=== PATIENT | female | born 1995 | race Caucasian/White ===

== ENCOUNTER 2024-03-01 02:11 | Outpatient (CLI) | payer MEDICAID, SELFPAY ==
[2024-03-01 02:33] VITALS: BP 118/79; PULSE 74; PULSE 78; TEMP 36.8; O2SAT 98
[2024-03-01 03:08] LABS: Appearance Urine Clear (Clear); Bilirubin Urine Negative (Negative); Blood Urine Negative (Negative); Color Urine Yellow (Yellow); Glucose Urine Negative (Negative); Ketones Urine Negative (Negative); Leukocyte Esterase Urine Negative (Negative); Nitrite Urine Negative (Negative); Protein Urine 1+ (Negative); Specific Gravity Urine >= 1.030 (1.000-1.030)
[2024-03-01 03:10] LABS: Clue Cells No Clue Cells Seen (None Seen); Trichomonas No Trichomonas Seen (None Seen); Yeast No Yeast Seen (None Seen)
[2024-03-01 03:11] LABS: Bacteria Urine Few; RBC Urine 0-2 (0-2); Squamous Epithelial Cell Urine Few (None-Few); WBC Urine 0-2 (0-5)
--- NOTE | 2024-03-01 03:50 | PC.OBNST ---
NST Note NST Note Start: 03/01/24 02:18 Freq: ONCE Status: Active Protocol: Document 03/01/24 03:44 DAKOTAH (Rec: 03/01/24 03:50 INGRIDPaul Riz[place]ota) NST Note 6 Para (# of births) 4 EDC 04/12/24 Gestational Age In Weeks & Days 34 Weeks & 0 Days Patient Presented with Complaint(s) of Pain If Pain, describe location pelvic/rectal pain and pressure. Other Complaints Patient arrived on unit ambulatory alone. 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 Pt arrives with complaints of feeling a lot of pressure in her rectum like she needs to have a bowel movement but cannot. She also reports lower back abdominal like cramping and RLQ cramping all night. She also reports having a headache last week that lasted for 2 days accompanied by black spots in her vision. Did not resolve with tylenol. BP stable and WNL. Reports she had BM today and is very regular. UA and wetprep collected. UA positive for bacteria, sent for culture. Wetprep negative, RN noted a white thin discharge accompanied by an odor when collecting swab. William Rosa CNM aware. Patient has transfer of care appointment on 03/02 withEstelita Benz CNM. Will follow up at that time. Pt left unit ambulatory and labor signs and symptoms discussed. All questions answered. Reactive Yes Appropriate for Gestational Age Yes FRANCE Perez RN Date 03/01/24 Reactive Yes Appropriate for Gestational Age Yes FRANCE Prieto RNC Date 03/01/24 OB NST charge Yes Complete NST Note via Write Note Yes The provider's electronic signature indicates the NST is reactive/appropriate for gestational age. *Note to provider: If an addendum is required, open the patient's chart and click on the note under the Nurse/Allied Health tab.
== END 2024-03-01 03:30 | disposition home or self-care (01) ==
LOC: OB OUT 02:11 → OB 02:11
PROVIDERS: Visit Provider Advanced Practice Midwife
DX: O47.03 False labor before 37 completed weeks of gestation, third trimester (principal); Z3A.34 34 weeks gestation of pregnancy
CPT/HCPCS: 59025; 81001; 81003; 87086; 87210; G0463

== ENCOUNTER 2024-03-02 08:54 | Outpatient (CLI) | payer MEDICAID, SELFPAY | END 2024-03-02 08:55 | disposition home or self-care (01) | LOC: NFLDREF 03-16 11:11 | PROVIDERS: Referring Provider Obstetrics & Gynecology; Visit Provider Advanced Practice Midwife | DX: Z34.93 Encounter for supervision of normal pregnancy, unspecified, third trimester (principal); Z3A.35 35 weeks gestation of pregnancy | CPT/HCPCS: 82728 ==

== ENCOUNTER 2024-03-21 22:49 | Outpatient (CLI) | payer MEDICAID, SELFPAY ==
[2024-03-21 23:02] VITALS: BP 112/70; PULSE 80; PULSE 82; RESP 16; TEMP 36.7; O2SAT 98
--- NOTE | 2024-03-22 00:19 | PC.OBNST ---
NST Note NST Note Start: 03/21/24 22:52 Freq: ONCE Status: Active Protocol: Document 03/21/24 23:45 LADARIUS (Rec: 03/22/24 00:18 LADARIUS Desktop) NST Note 6 Para (# of births) 4 EDC 04/12/24 Gestational Age In Weeks & Days 37 Weeks & 0 Days Patient Presented with Complaint(s) of Decreased movement Reactive Yes Appropriate for Gestational Age Yes FRANCE Wyman RN Date 03/21/24 Reactive Yes Appropriate for Gestational Age Yes FRANCE Guerra RNC Date 03/21/24 OB NST charge Yes Complete NST Note via Write Note Yes The provider's electronic signature indicates the NST is reactive/appropriate for gestational age. *Note to provider: If an addendum is required, open the patient's chart and click on the note under the Nurse/Allied Health tab.
== END 2024-03-21 23:45 | disposition home or self-care (01) ==
LOC: OB OUT 22:49 → OB 22:52
PROVIDERS: Visit Provider Advanced Practice Midwife
DX: O36.8130 Decreased fetal movements, third trimester, not applicable or unspecified (principal); Z3A.37 37 weeks gestation of pregnancy
CPT/HCPCS: 59025; G0463

== ENCOUNTER 2024-04-09 00:43 | Inpatient (IN) | payer MEDICAID, SELFPAY ==
[2024-04-08 22:55] VITALS: BP 106/72; PULSE 67; RESP 16; TEMP 36.8
[2024-04-08] MEDS: AMPICILLIN 2 GM in 0.9 % SODIUM CHLORIDE Mini-bag 100 ML IVPB (23:28)
[2024-04-08] MEDS: LACTATED RINGERS 1000 ML 1,000 ML 125 ML IV (23:29)
[2024-04-09] VITALS (17 sets, daily range): BP systolic 97–136; BP diastolic 52–93; PULSE 57–97; RESP 16–19; TEMP 36.4–36.9; O2SAT 97–99; BMI 26.4
--- NOTE | 2024-04-09 00:40 | P.LDBA_ITS ---
Subjective History of Present Illness Date Seen: 04/09/24 Narrative: Patient is being admitted to Labor and Delivery for labor. She is a 28 year old at 39.4 weeks gestation. Her full history and physical was dictated by WILLOW Barrera CNM on 03/25/24. Please see this for details. She has been darwin all day felt contractions worsened around 1999. Has had some small pink tinged discharge, denies leaking or henderson of fluid. +FM and painful contractions she has to breathe through on admision. Specific Issues/Plans Yefri H&P done by Santosh Camejo CNM on 03/25/24 -Anemia, taking iron supplement sporadically recent hgb 10.8, increased from previous. Encouraged to continue oral iron -GBS positive in urine at NOB, needs antibiotic prophylaxis in labor -Varicella equivocal, needs vaccine PP -Consider PP pap, hx of abnormals, last WNL, recommends 1 yr follow up, due 10/15 -measuring small for dates at 39 wks, growth u/s ordered ELISABETH 04/12/24 by u/s on 10/14/23 Labs: 07/07/23 Hgb 13.0 plts 203 O+, antibody negative 10/14/23 GC/chlamydia neg Hep B neg Rubella immune Syphilis neg varicella equivocal Urine culture GBS + Hep C neg HIV neg Pap NIL, HPV neg 02/04/24 GCT 67 Hgb 10.2 Plts 187 Syphilis neg Hx of abnormal pap smear. HPV+: 07/10 NIL, HPV Positive. 10/10 ASCUS/HPV positive Declined genetic screening Tdap 02/04/24 U/s: 11/25/23 Anatomy scan: 20.1 wks, posterior placenta, no previa. Normal fluid. EFW 38.9% 3 vessel cord. No abnormalities noted. 10/20/23 14.1 weeks. ELISABETH 04/12/24, dated by this u/s. 07/20/24 ELISABETH 02/26/24 by LMP 6.4 wks. By u/s 5.2 wks, ELISABETH 03/06/24 (Miscarriage prior to ) COVID: declined, not vaccinated TDAP: 02/04/2024 32wk Mental Health: completed at first visit 34wk Hgb: 03/02/2024 OB - Problem Based A/P Additional Plan (1) Distress from pain in labor: Status: Acute (2) 39 weeks gestation of : Status: Acute (3) Group B streptococcal bacteriuria: Problem details: at NOB Status: Acute Plan Assessment:?? at 39.4 weeks gestation?? GBS positive? Patient is coping well with challenges of labor.?? Labor type: Spontaneous, Early labor? Category 1 FHR pattern.? complicated by: -Anemia, taking iron supplement sporadically recent hgb 10.8, increased from previous. Encouraged to continue oral iron -GBS positive in urine at NOB, needs antibiotic prophylaxis in labor -Varicella equivocal, needs vaccine PP -Consider PP pap, hx of abnormals, last WNL, recommends 1 yr follow up, due 10/15 -measuring small for dates at 39 wks Plan:?? * ?Admit to L & D? * IV access: Saline lock for GBS antibiotics * Monitoring per policy: intermittent? * Candidate for analgesia of choice.? Planning waterbirth for pain management * Desires waterbirth.? Consent signed and Hep C negative * Expectant management at this time * GBS phrophylaxis initiated for GBS positive status. Will treat with antibiotics per protocol.? * Patient encouraged to reposition and ambulate to promote physiologic labor and . * Anticipate ? Delivery/Labor/Induction Plan Plan: expectant management OB Exam Physical Exam Vital signs: Temp Pulse Resp BP 98.2 F 67 16 106/72 04/08/24 22:55 04/08/24 22:55 04/08/24 22:55 04/08/24 22:55 Narrative: Vitals Reviewed Constitutional:? Alert and oriented x3 HEENT:? Normocephalic, atraumatic Neck:? Supple Lungs:? Clear to auscultation bilaterally Heart:? Regular rate and rhythm, no murmur, rub or gallop Abdomen:? Soft, nontender, and gravid. Vertex by Oleg's, confirmed with cervical exam. Extremities:? No edema or erythema Cervix: 2.5 cm/70%/0 station/vertex, posterior NST: 130 bpm/moderate variability/+accelerations/-decelerations/moderate contractions Detailed Labor and Delivery Exam Patient Gravid: Yes
[2024-04-09 00:50] LABS: Basophils Absolute Auto 0.04 K/uL (0.00-0.30); Basophils Percent Auto 0.4 % (0.0-3.0); Eosinophils Absolute Auto 0.08 K/uL (0.00-0.50); Eosinophils Percent Auto 0.8 % (0.0-7.0); Hemoglobin* 11.3 gm/dL (12.0-16.0); Immature Granulocytes Abs Auto 0.06 K/uL (0.00-0.30); Immature Granulocytes Pct Auto 0.6 %; Lymphocytes Absolute Auto 2.12 K/uL (0.90-2.90); Lymphocytes Percent Auto 22.2 % (20-44); Mean Corpuscular HGB Conc 32 gm/dL (32-36); Mean Corpuscular Hemoglobin 29 pg (26-34); Mean Corpuscular Volume 88 fL (80-100); Monocytes Percent Auto 6.3 % (0.0-11.0); Neutrophils Absolute Auto 6.66 K/uL (1.7-7.0); Neutrophils Percent Auto 69.7 % (42.0-72.0); Platelet Count* 207 K/uL (140-440); RDW Coefficient of Variation % 15.7 % (11.5-15.5); Red Blood Count 3.97 m/uL (4.00-5.20); White Blood Count* 9.56 K/uL (4.50-11.00)
[2024-04-09 00:53] LABS: Slide Review Reflex No
--- NOTE | 2024-04-09 02:17 | W.PM.OBVAGDE ---
OB Procedure Vag Delivery Mother Details Mother Details: The patient is a 28 year-old, 6, Para 4, admitted on 04/09/24 at 39.4 weeks gestation. : 6 Para: 5 Weeks Gestation: 39.4 Admission Date: 04/09/24 Additional Details Amniotic Membrane Status: SROM Amniotic Membrane Rupture Date: 04/09/24 Amniotic Membrane Rupture Time: :53 Amniotic Membrane Fluid Description: Clear Analgesia/Anesthesia Type: None Waterbirth: Yes Pitcoin: Yes (for AMTSL) Intrapartal Events: None Labor Onset: 20:00 Complete: :53 Pushin:53 Heart: heart tones during second stage were intermittently monitored, reassuring with audible increases and no decreases heard. Ranging from 115-135 Delivery Details Delivery Date: 04/09/24 Delivery Time: :56 Route of delivery: Infant Gender: Female Viability: Alive; Heart Rate Present Position at Delivery: OA Delivery Details: 28 y.o?at 39.4 weeks.? Ja arrived complaining of contractions throughout the day which got stronger around 1999, she noted occasional light pink discharge. She was started on antibiotics for GBS positive urine culture at her first OB visit. She labored in multiple positions and used the shower for pain management until she began to feel like pushing with some contractions. She entered the tub around 0130?and had SROM of clear fluid at 0153, she was assumed complete at that time and began pushing with her contractions. She then had a spontaneous vaginal delivery at 0156 of?a viable? female infant.??Delivered in vertex OA position.??Shoulders delivered easily.? Spontaneous cry noted.??Infant placed on maternal abdomen.??Cord?was clamped and cut after a 5+ minute delay.??Nose and mouth were bulb suctioned.? Shoulder dystocia: no? Nuchal cord: times one? Meconium stained?fluid: no? Water : yes? ? ? 8 at 1 minute and 9 at 5 minutes.? Weight is pending. ? Placenta delivered spontaneously and?complete?at 0206 with a?3 vessel?cord.?? Bleeding controlled with fundal massage and?pitocin?for AMTSL.? ? Mother and infant were stable after delivery.? ? Lacerations:?intact ? Bleeding?post delivery?was: minimal. ?The fundus was firm to palpation.? Blood loss: 200?mL.? Blood loss measurement type: QBL? ? ? Sponge,?lap?and needles counts are correct.? Mother and infant were stable after delivery.? 1 Minute Interval Total Score: 8 5 Minute Interval Total Score: 9 Additional Details Shoulder Dystocia: No Placenta Delivery Time: 02:06 Placental Delivery Description: Spontaneous Procedure Done: Global Blood Loss: 200 Laceration: None Blood Loss Measurement Type: QBL Bakri Used: No Sponge/Need Count Correct: Yes Cord Vessel Description: 3 Vessels, Nuchal Cord and Delivered through Event Summary Status: Mother and were stable after delivery. Disposition: floor
[2024-04-09] MEDS: OXYTOCIN 30 unit/500 ML in NS 30 UNIT/500 ML BAG 300 UNIT IVPB (02:20)
[2024-04-09] MEDS: DOCUSATE SODIUM 100 MG CAPSULE PO (08:36)
[2024-04-09] MEDS: IBUPROFEN 600 MG TABLET PO ×2 (08:36→15:15)
[2024-04-10 03:01] VITALS: BP 104/56; PULSE 53; RESP 18; TEMP 36.9; O2SAT 97
[2024-04-10] MEDS: DOCUSATE SODIUM 100 MG CAPSULE PO (08:23)
[2024-04-10 08:24] VITALS: BP 105/64; PULSE 69; RESP 18; TEMP 36.3; O2SAT 98
--- NOTE | 2024-04-10 08:25 | P.DS_ITS ---
DS: Providers Provider Date Seen: 04/10/24 Date of admission: 04/09/24 00:43 Primary care physician: [facility] Admitting Clinician: Bimal Camejo CNM Attending Physician on discharge: Bimal Camejo CNM Date of Discharge: 04/10/24 DS: Diagnosis Discharge Diagnosis (1) care and examination of lactating mother: Status: Acute (2) (normal spontaneous vaginal delivery): Status: Acute Exam Narrative: Exam Narrative: GENERAL APPEARANCE:? normal affect, alert, no distress MOOD:? appropriate CHEST:? clear to auscultation HEART:? regular rate and rhythm ABDOMEN:? soft, non-tender the uterine fundus is 1 cm below Umbilicus, Midline and is appropriate for the stage of recovery. PERINEUM:? mild edema of the perineum, there is no Perineal Laceration. EXTREMITIES:? normal and without edema Const: Vital Signs, click to edit/add: Vital Signs - 24 hr 04/09/24 08:40 04/09/24 12:15 04/09/24 16:03 Temperature 97.6 F 97.9 F 98.1 F Pulse Rate [Pulse Oximeter] 72 97 64 Respiratory Rate 19 17 17 Blood Pressure [Le ft Arm] 111/56 L 97/61 107/69 Pulse Oximetry 97 97 99 Oxygen Delivery Me thod Room Air Room Air Room Air 04/09/24 20:15 04/10/24 03:01 Temperature 98.4 F Pulse Rate [Pulse Oximeter] 69 53 L Respiratory Rate 18 18 Blood Pressure [Le ft Arm] 115/56 L 104/56 L Pulse Oximetry 99 97 Oxygen Delivery Me thod Room Air Room Air OB - DS: Summary Hospital Course Hospital Course: Ja is a 28 y.o. G 6 P 5005 who was admitted to L & D for active labor.? She had a NVD that was uncomplicated. The patient feels well.? The pain is well controlled with current medications.? She has no new complaints.? She is breast feeding and reports things are going well. the patient has done well.? Vitals have been stable.? She has remained afebrile.? Has a good appetite, is tolerating a general diet.? She is voiding without difficulty.? She is passing gas and has not had a bowel movement.? She is ambulating and denies any dizziness.? Has small amount of rubra lochia. She is planning abstinence or condoms for prevention.? ?? Problems: GBS+ Varicella non-immune Anemia Hx abnormal PAP-repeat due 09/2024? ?? plan:? Discharge home with baby.? Follow up in 2 weeks and 6 weeks.? , may see if needed? Hgb 11.3 on admit. Iron supplement ordered orally every other day? Labs WNL or stable with trending? Follow up in 3-5 days? Call for signs/symptoms of preeclampsia, fever, abnormal bleeding? Peripartum Data delivery method: Vaginal Laceration description: None Episiotomy description: None complications: none [place] Infant Gender: Female Discharge Plan: Home Status at Discharge Functional status at discharge: independent ambulation Time Spent with Patient Time attestation: Total time spent providing and/or coordinating discharge services: Time spent: Less than 30 minutes Discharge Plan Discharge Disposition: Home, Self-Care Date of Admission: 04/09/24 00:43 Attending Provider on Discharge: Frances Kaplan Primary Care Provider: Provider,Not a Local Condition: Stable Anticipated Discharge Date/Time: 04/10/24 14:00 Discharge Medications: Continued One Daily [phone] mg-mcg-mg combo pack 1 pkg PO DAILY ferrous sulfate [Iron (ferrous sulfate)] 325 mg (65 mg iron) tablet 650 mg PO Q OTHER DAY Discontinued calcium carbonate [Tums] 200 mg calcium (500 mg) tablet,chewable 200 mg PO BID PRN Discharge Orders: Discharge Order (Routine); Ordered 04/10/24 Ordered By: Frances Kaplan Patient Education: OB Vaginal/Breast Feeding Activity Level: Activity as Tolerated Discharge Diet: Regular Follow Up Appointments: [facility] [Provider Group] Forms: Shhmoozeth Info Instructions
[2024-04-10 23:04] LABS: Rapid Plasma Reagin (RPR) Non Reactive (Non Reactive)
== END 2024-04-10 14:15 | disposition home or self-care (01) | DRG 560 ==
LOC: OB OUT 00:44 → OB 00:44
PROVIDERS: Admitting Provider Advanced Practice Midwife; Visit Provider Advanced Practice Midwife
DX: O99.824 Streptococcus B carrier state complicating childbirth (principal); Z3A.39 39 weeks gestation of pregnancy; O99.02 Anemia complicating childbirth; D64.9 Anemia, unspecified; Z37.0 Single live birth
CPT/HCPCS: 36415; 85025; 86592; 86850; 86900; 86901; G0463; A9270; J0290; J7120